=== PATIENT | female | born 1965 | race Caucasian/White ===

== ENCOUNTER 2019-08-31 04:21 | Emergency (ER) | payer OTHER ==
[2019-08-31] MEDS ORDERED: Lidocaine 1% with EPINEPHrine 1:100,000 20 ML MDV ONE (04:45)
--- NOTE | 2019-08-31 05:34 | PCM.CONS ---
H&P History of Present Illness - General Date of Service: 08/31/19 Admit Problem/Dx: scalp laceration Source of Information: Patient History Limitations: Reports: No Limitations - History of Present Illness Initial Comments - Free Text/Narative: 54 yo woman was drinking this evening and fell backwards striking her occiput. There was a posterior scalp laceration with reported significant arterial hemorrhage and the patient was evaluated at the [place] [facility] and transferred to [place] for surgical evaluation. On arrival, her accompanying CT images of the head, c-spine and chest were reviewed. Her CBC revealed a Hgb of 11.1 g/dL. The dressing was taken down and there was no active hemorrhage, but a 6 cm transverse linear laceration with significant surrounding dry blood and sizeable hematoma in the wound bed. Vitals approximately: afebrile, 90/40 mm Hg , HR 80 bpm, RR 20, SpO2 100% on room air. Onset of Symptoms: Reports: Today Head Pain Score (Numeric/FACES): 10 - Related Data Allergies/Adverse Reactions: Allergies Allergy/AdvReac Type Severity Reaction Status Date / Time No Known Allergies Allergy Verified 08/31/19 04:25 Social & Family History - Tobacco Use Smoking Status *Q: Current Some Day Smoker Years of Tobacco use: 2 Packs/Tins Daily: 0.5 - Caffeine Use Caffeine Use: Reports: Coffee - Recreational Drug Use Recreational Drug Use: No H&P Review of Systems - Review of Systems: Review Of Systems: See Below General: Reports: Weakness, Diaphoresis Neurological: Reports: Dizziness Exam - Exam Exam: See Below - Vital Signs Vital Signs: Last Vital Signs Temp Pulse 75 08/31/19 04:26 Resp 16 08/31/19 04:26 BP 95/64 08/31/19 04:26 Pulse Ox 99 08/31/19 04:26 Weight: 77.111 kg - Exam General: Alert, Oriented HEENT: Other (right posterior scalp laceration, transverse, linear, 6 cm in length, down to level of galea aponeurotica, hemostatic, with hematoma in wound bed. ) - Patient Data Lab Results Last 24 hrs: Laboratory Results - last 24 hr 08/31/19 Range/Units 04:35 WBC 9.89 (3.98-10.04) K/mm3 RBC 3.59 L (3.98-5.22) M/mm3 Hgb 11.1 L (11.2-15.7) gm/dl Hct 34.5 (34.1-44.9) % MCV 96.1 H (79.4-94.8) fl MCH 30.9 (25.6-32.2) pg MCHC 32.2 (32.2-35.5) g/dl RDW Std Deviation 42.7 (36.4-46.3) fL Plt Count 305 (182-369) K/mm3 MPV 9.7 (9.4-12.3) fl Neut % (Auto) 75.8 H (34.0-71.1) % Lymph % (Auto) 18.7 L (19.3-51.7) % [place] % (Auto) 4.6 L (4.7-12.5) % Eos % (Auto) 0.4 L (0.7-5.8) Baso % (Auto) 0.3 (0.1-1.2) % Neut # (Auto) 7.50 H (1.56-6.13) K/mm3 Lymph # (Auto) 1.85 (1.18-3.74) K/mm3 [place] # (Auto) 0.45 H (0.24-0.36) K/mm3 Eos # (Auto) 0.04 (0.04-0.36) K/mm3 Baso # (Auto) 0.03 (0.01-0.08) K/mm3 Result Diagrams: 08/31/19 04:35 Sepsis Event Note - Evaluation Sepsis Screening Result: No Definite Risk - Focused Exam Vital Signs: Vital Signs Pulse Resp BP Pulse Ox 08/31/19 04:26 75 16 95/64 99 Date Exam was Performed: 08/31/19 Time Exam was Performed: 05:28 Consult PN Assessment/Plan Problem List Initiated/Reviewed/Updated: Yes My Orders Last 24 Hours: My Active Orders 08/31/19 04:35 TYPE AND SCREEN [BBK] Stat 08/31/19 05:28 Ready for Discharge [RC] PER UNIT ROUTINE Plan: Trauma, scalp laceration. Wound washed out and closed in ER and patient deemed fit for discharge home. Sutures out in 10-14 days. Follow up in [facility].
--- NOTE | 2019-08-31 05:39 | PCM.PRNOTE ---
- Free Text/Narrative Note: Date: 08/31/2019 Diagnosis: trama with scalp laceration Procedure: wound washout and closure Report: The patient's dressing was taken down, and the wound was inspected. The hair was matted with dried blood. The patient's head was washed in the sink with soap and water, and the wound was exposed with combing and cutting surrounding hair. The wound was hemostatic. Hematoma was removed piecemeal with forceps and scissors. 20 cc 1% lidocaine with epinephrine was injected intradermally at the wound site. The wound was irrigated with an iodine saline mix. A total of 5 simple interrupted 3-0 nylon sutures were placed to reapproximate the skin edges. The patient tolerated the procedure well. Clifford Lawton MD General Surgery
[2019-08-31] MEDS ORDERED: Lidocaine 1% with EPINEPHrine 1:100,000 20 ML MDV INJECT ONE (06:10)
== END 2019-08-31 06:08 | disposition home or self-care (01) ==
LOC: JD.ED 04:21
DX: S01.01XA Laceration without foreign body of scalp, initial encounter (principal); F17.210 Nicotine dependence, cigarettes, uncomplicated; W01.10XA Fall on same level from slipping, tripping and stumbling with subsequent striking against unspecified object, initial encounter
CPT/HCPCS: 36415; 85025; 86850; 86900; 86901; 96361; 96365; 96366; 96375; 99285-25